=== PATIENT | male | born 1955 | race Caucasian/White ===

== ENCOUNTER → 2016-09-30 | Outpatient (CLI) | payer BC ==
[2016-09-30 09:13] LABS: Albumin 3.9 g/dL (3.4-5.0); Calcium 8.7 mg/dL (8.5-10.1); Potassium 4.7 mmol/L (3.5-5.1)
[2016-09-30 09:18] LABS: Bilirubin, Total 1.1 mg/dL (0.2-1.0); Total Protein 7.4 g/dL (6.4-8.2)
== END | disposition home or self-care (01) ==
LOC: LAB 06:59
DX: E11.29 Type 2 diabetes mellitus with other diabetic kidney complication (principal); C61 Malignant neoplasm of prostate
CPT/HCPCS: 36415; 80053; 82043; 82570; 83036; 84153

== ENCOUNTER 2018-05-01 09:38 | Inpatient (IN) | payer BC ==
[~2018-05-01] VITALS: Ht 180.3 cm; Wt 96.7 kg
[2018-05-01 11:02] LABS: Basophils # (auto) 0 uL; Basophils % (auto) 0.2 % (0.0-2.0); Eosinophils # (auto) 0 uL; Hematocrit 46.4 % (41.0-53.0); Hemoglobin 16.3 g/dL (13.5-17.5); Lymphocytes # (auto) 1.1 uL; Lymphocytes % (auto) 4.4 % (10.0-50.0); Mean Corpuscular Hemoglobin 30.6 pg (28.0-32.0); Mean Corpuscular Hgb Conc. 35.1 g/dL (32.0-36.0); Mean Corpuscular Volume 87.1 fL (80.0-100.0); Monocytes # (auto) 1.5 uL; Monocytes % (auto) 6.3 % (0.0-12.0); Neutrophils # (auto) 21.8 uL; Neutrophils % (auto) 89.1 % (37.0-80.0); Nucleated Red Blood Cells % 0.1 %; Platelet Count (auto) 295 10^3/uL (140-450); Red Blood Cells 5.33 10^6/uL (4.5-5.90); Red Cell Distribution Width 12.4 % (11.8-14.3); White Blood Cell 24.5 10^3/uL (4.4-10.8)
[2018-05-01 11:04] LABS: Urine Bacteria MANY /hpf (None Seen); Urine Blood 1+ /uL (Negative); Urine Specific Gravity 1.027 (1.001-1.035); Urine WBC 137 /hpf (0 - 3)
[2018-05-01 11:51] LABS: Alanine Aminotransferase 17 U/L (16-61); Alkaline Phosphatase 114 U/L (45-117); Anion Gap 11 (5-15); Aspartate Aminotransferase 7 U/L (15-37); BUN/Creatinine Ratio 19.4; Bilirubin, Total 2.3 mg/dL (0.2-1.0); Blood Urea Nitrogen 28 mg/dL (7-18); Calcium 8.6 mg/dL (8.5-10.1); Carbon Dioxide 21 mmol/L (21-32); Chloride 94 mmol/L (98-107); GFR African American 64 mL/min; GFR Non-African American 53 mL/min; Glucose 374 mg/dL (74-106); Magnesium 2.2 mg/dL (1.6-2.6); Potassium 4.4 mmol/L (3.5-5.1); Sodium 126 mmol/L (136-145); Total Protein 7.7 g/dL (6.4-8.2)
[2018-05-01] MEDS ORDERED: SODIUM CHLORIDE 0.9% 1,000 ML IV ONE (12:00)
[2018-05-01] MEDS ORDERED: cefTRIAXone 1GM/10ml IVPUSH 10 ML IV ONE (12:45)
[2018-05-01] MEDS ORDERED: ACETAMINOPHEN 325 MG TAB PO PRN (14:15)
[2018-05-01] MEDS ORDERED: MORPHINE SULFATE 4 MG/ML SYR/VIAL IV PRN ×2 (14:15)
[2018-05-01] MEDS ORDERED: VANCOMYCIN PER PHARMACY 0 MG IV SCH (14:15)
[2018-05-01] MEDS ORDERED: NITROGLYCERIN 0.4 MG SL TAB SL PRN (14:15)
[2018-05-01] MEDS ORDERED: TEMAZEPAM 15 MG CAP PO PRN (14:15)
[2018-05-01] MEDS ORDERED: DEXTROSE (50%) 50ML SYRG IV PRN (14:15)
[2018-05-01] MEDS ORDERED: ONDANSETRON HCL 4 MG/2 ML VIAL IV PRN (14:15)
[2018-05-01] MEDS ORDERED: HYDROcodone-ACET 5/325MG TAB PO PRN (14:15)
[2018-05-01] MEDS ORDERED: DOCUSATE SOD 100 MG CAP PO PRN (14:15)
[2018-05-01] MEDS: VANCOMYCIN 1GM/250ML 250 ML IV SCH (15:28)
[2018-05-01] MEDS ORDERED: ACET325T82 PO (15:38)
[2018-05-01] MEDS ORDERED: cloNIDine HCL 0.1 MG TAB PO PRN (17:30)
[2018-05-01] MEDS: ACCU-CHEK COMFORT CURVE STRIP VI SCH ×2 (17:34→21:26)
[2018-05-01] MEDS: InsuLIN REG 1unit/0.01ml Soln (100units/ml) SC SCH ×2 (17:37→21:27)
[2018-05-01] MEDS ORDERED: Glucerna Carbsteady SHAKE Vanilla 8oz PO SCH (18:00)
[2018-05-01] MEDS: Glucerna Carbsteady SHAKE Vanilla 8oz PO SCH (18:00)
[2018-05-01] MEDS: IPRATROPIUM BROM 0.5 MG/2.5ML INH SOL NEB SCH (18:05)
[2018-05-01] MEDS: ALBUTEROL SULF 2.5 MG/0.5ML(0.5%) NEB SOLN NEB SCH (18:05)
[2018-05-01 19:21] LABS: INR 0.94 (0.9-1.15); Prothrombin Time 10.1 sec (9.27-12.13)
[2018-05-01 19:38] VITALS: BP 146/83
[2018-05-01 20:21] VITALS: BP 144/80
[2018-05-01] MEDS: FAMOTIDINE 20 MG TAB PO SCH (21:26)
[2018-05-01 22:00] VITALS: BP 127/81
[2018-05-01] MEDS: SODIUM CHLOR 0.9% PF (SALINE LOCK) 10ML VIAL/SYR IV SCH (22:00)
[2018-05-02] MEDS: VANCOMYCIN 1GM/250ML 250 ML IV SCH ×2 (02:45→14:52)
[2018-05-02 04:45] VITALS: BP 154/90
[2018-05-02 05:53] LABS: Basophils # (auto) 0 uL; Basophils % (auto) 0.2 % (0.0-2.0); Eosinophils # (auto) 0 uL; Hematocrit 41.7 % (41.0-53.0); Hemoglobin 14.6 g/dL (13.5-17.5); Lymphocytes # (auto) 0.9 uL; Lymphocytes % (auto) 4.8 % (10.0-50.0); Mean Corpuscular Hemoglobin 30.5 pg (28.0-32.0); Mean Corpuscular Volume 87.2 fL (80.0-100.0); Monocytes # (auto) 1.3 uL; Monocytes % (auto) 7.2 % (0.0-12.0); Neutrophils # (auto) 15.6 uL; Neutrophils % (auto) 87.8 % (37.0-80.0); Nucleated Red Blood Cells % 0.1 %; Platelet Count (auto) 284 10^3/uL (140-450); Red Blood Cells 4.78 10^6/uL (4.5-5.90); Red Cell Distribution Width 12.3 % (11.8-14.3); White Blood Cell 17.8 10^3/uL (4.4-10.8)
[2018-05-02] MEDS: SODIUM CHLOR 0.9% PF (SALINE LOCK) 10ML VIAL/SYR IV SCH ×3 (06:08→21:48)
[2018-05-02 06:17] LABS: Albumin 2.6 g/dL (3.4-5.0); BUN/Creatinine Ratio 23.4; Bilirubin, Total 1.4 mg/dL (0.2-1.0); Calcium 8.2 mg/dL (8.5-10.1); Potassium 4.1 mmol/L (3.5-5.1); Total Protein 6.7 g/dL (6.4-8.2)
[2018-05-02] MEDS: InsuLIN REG 1unit/0.01ml Soln (100units/ml) SC SCH ×4 (06:25→21:48)
[2018-05-02] MEDS: ACCU-CHEK COMFORT CURVE STRIP VI SCH ×4 (06:25→21:47)
[2018-05-02] MEDS: IPRATROPIUM BROM 0.5 MG/2.5ML INH SOL NEB SCH ×3 (06:49→18:41)
[2018-05-02] MEDS: ALBUTEROL SULF 2.5 MG/0.5ML(0.5%) NEB SOLN NEB SCH ×3 (06:49→18:41)
[2018-05-02] MEDS: Glucerna Carbsteady SHAKE Vanilla 8oz PO SCH ×3 (08:00→18:13)
[2018-05-02 09:00] VITALS: BP 161/82
[2018-05-02] MEDS: cefTRIAXone 1GM/10ml IVPUSH 10 ML IV SCH (09:14)
[2018-05-02] MEDS: MULTIPLE VITAMIN TAB PO SCH (09:15)
[2018-05-02] MEDS: FAMOTIDINE 20 MG TAB PO SCH ×2 (09:15→21:47)
[2018-05-02] MEDS ORDERED: glipiZIDE 5 MG TAB PO ONE (10:45)
[2018-05-02 12:00] VITALS: BP 150/89
[2018-05-02 17:17] VITALS: BP 152/90
[2018-05-02] MEDS: glipiZIDE 5 MG TAB PO SCH (18:12)
[2018-05-02 21:52] VITALS: BP 134/83
[2018-05-03] MEDS: IPRATROPIUM BROM 0.5 MG/2.5ML INH SOL NEB SCH
[2018-05-03] MEDS: ALBUTEROL SULF 2.5 MG/0.5ML(0.5%) NEB SOLN NEB SCH
[2018-05-03] MEDS: VANCOMYCIN 1GM/250ML 250 ML IV SCH (02:50)
[2018-05-03 05:08] VITALS: BP 147/82
[2018-05-03 05:23] LABS: BUN/Creatinine Ratio 17.9; Calcium 7.6 mg/dL (8.5-10.1); Potassium 3.9 mmol/L (3.5-5.1)
[2018-05-03] MEDS: SODIUM CHLOR 0.9% PF (SALINE LOCK) 10ML VIAL/SYR IV SCH ×3 (05:24→21:21)
[2018-05-03 05:36] LABS: Hemoglobin 14.5 g/dL (13.5-17.5); Mean Corpuscular Hemoglobin 30.8 pg (28.0-32.0); Mean Corpuscular Hgb Conc. 36.1 g/dL (32.0-36.0); Mean Corpuscular Volume 85.5 fL (80.0-100.0); Platelet Count (auto) 245 10^3/uL (140-450); Red Blood Cells 4.69 10^6/uL (4.5-5.90); Red Cell Distribution Width 12.3 % (11.8-14.3); White Blood Cell 13.3 10^3/uL (4.4-10.8)
[2018-05-03 05:39] LABS: Basophils % (manual) 0 (0.0-2.0); Blast Cells 0; Eosinophils % (manual) 0 (0-7); Metamyelocytes % 0; Myelocytes % 0; Promyelocytes % 0; Reactive Lymphocytes 0
[2018-05-03] MEDS: glipiZIDE 5 MG TAB PO SCH ×2 (06:10→17:47)
[2018-05-03] MEDS: InsuLIN REG 1unit/0.01ml Soln (100units/ml) SC SCH ×4 (06:11→21:21)
[2018-05-03] MEDS: ACCU-CHEK COMFORT CURVE STRIP VI SCH ×4 (06:11→21:21)
[2018-05-03 06:15] LABS: Band Neutrophils % (manual) 2; Lymphocytes % (manual) 7 (10.0-50.0); Monocytes % (manual) 8 (0-12)
[2018-05-03 08:01] VITALS: BP 150/89
[2018-05-03 09:00] VITALS: BP 168/87
[2018-05-03] MEDS: cefTRIAXone 1GM/10ml IVPUSH 10 ML IV SCH (10:00)
[2018-05-03] MEDS: MULTIPLE VITAMIN TAB PO SCH (11:26)
[2018-05-03] MEDS: FAMOTIDINE 20 MG TAB PO SCH ×2 (11:26→21:21)
[2018-05-03] MEDS: Glucerna Carbsteady SHAKE Vanilla 8oz PO SCH ×3 (11:26→17:47)
[2018-05-03] MEDS: ERTAPENEM SOD INJ 1 GM in SODIUM CHL 0.9% 50 ML IV SCH (11:50)
[2018-05-03 13:00] VITALS: BP 148/89
[2018-05-03] MEDS: SOD CHL 0.45% WITH 20MEQ KCL 1,000 ML IV SCH (15:09)
[2018-05-03 17:00] VITALS: BP 128/83
[2018-05-03 21:40] VITALS: BP 141/74
[2018-05-04] MEDS: SOD CHL 0.45% WITH 20MEQ KCL 1,000 ML IV SCH ×3 (03:12→18:56)
[2018-05-04 05:11] VITALS: BP 139/88
[2018-05-04] MEDS: InsuLIN REG 1unit/0.01ml Soln (100units/ml) SC SCH ×4 (06:56→22:36)
[2018-05-04] MEDS: ACCU-CHEK COMFORT CURVE STRIP VI SCH ×4 (06:57→22:35)
[2018-05-04] MEDS: SODIUM CHLOR 0.9% PF (SALINE LOCK) 10ML VIAL/SYR IV SCH ×3 (06:57→22:36)
[2018-05-04] MEDS: glipiZIDE 5 MG TAB PO SCH ×2 (07:46→18:00)
[2018-05-04 09:00] VITALS: BP 138/82
[2018-05-04] MEDS: Glucerna Carbsteady SHAKE Vanilla 8oz PO SCH ×3 (09:41→18:00)
[2018-05-04] MEDS: MULTIPLE VITAMIN TAB PO SCH (10:12)
[2018-05-04] MEDS: FAMOTIDINE 20 MG TAB PO SCH ×2 (10:12→22:33)
[2018-05-04] MEDS: ERTAPENEM SOD INJ 1 GM in SODIUM CHL 0.9% 50 ML IV SCH (10:13)
[2018-05-04 12:56] LABS: BUN/Creatinine Ratio 17.5; Calcium 7.9 mg/dL (8.5-10.1); Potassium 4.5 mmol/L (3.5-5.1)
[2018-05-04 13:00] VITALS: BP 141/82
[2018-05-04 16:57] VITALS: BP 133/83
[2018-05-04 22:00] VITALS: BP 135/82
[2018-05-05 05:23] VITALS: BP 139/78
[2018-05-05] MEDS: SOD CHL 0.45% WITH 20MEQ KCL 1,000 ML IV SCH ×3 (05:44→16:56)
[2018-05-05] MEDS: SODIUM CHLOR 0.9% PF (SALINE LOCK) 10ML VIAL/SYR IV SCH ×3 (05:44→21:50)
[2018-05-05 05:54] LABS: Hematocrit 42.9 % (41.0-53.0); Hemoglobin 15.3 g/dL (13.5-17.5); Mean Corpuscular Hemoglobin 30.9 pg (28.0-32.0); Mean Corpuscular Hgb Conc. 35.7 g/dL (32.0-36.0); Mean Corpuscular Volume 86.6 fL (80.0-100.0); Platelet Count (auto) 310 10^3/uL (140-450); Red Blood Cells 4.96 10^6/uL (4.5-5.90); Red Cell Distribution Width 12.2 % (11.8-14.3); White Blood Cell 9.1 10^3/uL (4.4-10.8)
[2018-05-05 06:05] LABS: Basophils % (manual) 0 (0.0-2.0); Blast Cells 0; Eosinophils % (manual) 0 (0-7); Promyelocytes % 0; Reactive Lymphocytes 0
[2018-05-05 06:55] LABS: Band Neutrophils % (manual) 1; Lymphocytes % (manual) 31 (10.0-50.0); Metamyelocytes % 1; Monocytes % (manual) 7 (0-12); Myelocytes % 1
[2018-05-05] MEDS: InsuLIN REG 1unit/0.01ml Soln (100units/ml) SC SCH ×4 (06:59→21:51)
[2018-05-05] MEDS: ACCU-CHEK COMFORT CURVE STRIP VI SCH ×4 (06:59→21:50)
[2018-05-05] MEDS: glipiZIDE 5 MG TAB PO SCH ×2 (07:00→17:05)
[2018-05-05 09:00] VITALS: BP 135/83
[2018-05-05] MEDS: FAMOTIDINE 20 MG TAB PO SCH ×2 (09:53→21:50)
[2018-05-05] MEDS: MULTIPLE VITAMIN TAB PO SCH (09:53)
[2018-05-05] MEDS: ERTAPENEM SOD INJ 1 GM in SODIUM CHL 0.9% 50 ML IV SCH (09:54)
[2018-05-05] MEDS: Glucerna Carbsteady SHAKE Vanilla 8oz PO SCH ×3 (09:55→18:03)
[2018-05-05 13:00] VITALS: BP 137/81
[2018-05-05 16:32] VITALS: BP 136/80
[2018-05-05 21:41] VITALS: BP 128/84
[2018-05-06] MEDS: SOD CHL 0.45% WITH 20MEQ KCL 1,000 ML IV SCH ×2 (04:51→20:45)
[2018-05-06 05:19] VITALS: BP 127/66
[2018-05-06 06:07] LABS: Basophils # (auto) 0.1 uL; Basophils % (auto) 0.7 % (0.0-2.0); Eosinophils # (auto) 0.2 uL; Eosinophils % (auto) 1.9 % (0.0-7.0); Hematocrit 40.6 % (41.0-53.0); Hemoglobin 14.5 g/dL (13.5-17.5); Lymphocytes # (auto) 1.8 uL; Mean Corpuscular Hemoglobin 30.5 pg (28.0-32.0); Mean Corpuscular Hgb Conc. 35.7 g/dL (32.0-36.0); Mean Corpuscular Volume 85.4 fL (80.0-100.0); Monocytes # (auto) 1.3 uL; Monocytes % (auto) 14.7 % (0.0-12.0); Neutrophils # (auto) 5.7 uL; Neutrophils % (auto) 62.7 % (37.0-80.0); Nucleated Red Blood Cells % 0.1 %; Platelet Count (auto) 310 10^3/uL (140-450); Red Blood Cells 4.76 10^6/uL (4.5-5.90); Red Cell Distribution Width 12.1 % (11.8-14.3)
[2018-05-06] MEDS: SODIUM CHLOR 0.9% PF (SALINE LOCK) 10ML VIAL/SYR IV SCH ×3 (06:22→21:41)
[2018-05-06] MEDS: glipiZIDE 5 MG TAB PO SCH ×2 (06:39→17:41)
[2018-05-06] MEDS: ACCU-CHEK COMFORT CURVE STRIP VI SCH ×4 (06:40→21:41)
[2018-05-06] MEDS: InsuLIN REG 1unit/0.01ml Soln (100units/ml) SC SCH ×4 (06:40→21:41)
[2018-05-06 08:00] VITALS: BP 128/91
[2018-05-06] MEDS: Glucerna Carbsteady SHAKE Vanilla 8oz PO SCH ×3 (08:45→17:42)
[2018-05-06] MEDS: ERTAPENEM SOD INJ 1 GM in SODIUM CHL 0.9% 50 ML IV SCH (09:52)
[2018-05-06] MEDS: FAMOTIDINE 20 MG TAB PO SCH ×2 (09:53→21:41)
[2018-05-06] MEDS: MULTIPLE VITAMIN TAB PO SCH (09:53)
[2018-05-06 11:57] VITALS: BP 140/87
[2018-05-06 16:45] VITALS: BP 132/89
[2018-05-06 21:52] VITALS: BP 139/81
[2018-05-07] MEDS: SOD CHL 0.45% WITH 20MEQ KCL 1,000 ML IV SCH (03:44)
[2018-05-07 05:00] VITALS: BP 130/79
[2018-05-07] MEDS: SODIUM CHLOR 0.9% PF (SALINE LOCK) 10ML VIAL/SYR IV SCH ×3 (06:02→21:14)
[2018-05-07] MEDS: ACCU-CHEK COMFORT CURVE STRIP VI SCH ×4 (06:27→22:29)
[2018-05-07] MEDS: InsuLIN REG 1unit/0.01ml Soln (100units/ml) SC SCH ×4 (06:27→22:29)
[2018-05-07] MEDS: glipiZIDE 5 MG TAB PO SCH ×2 (06:27→17:34)
[2018-05-07] MEDS: Glucerna Carbsteady SHAKE Vanilla 8oz PO SCH ×3 (08:54→18:54)
[2018-05-07] MEDS: MULTIPLE VITAMIN TAB PO SCH (10:01)
[2018-05-07] MEDS: ERTAPENEM SOD INJ 1 GM in SODIUM CHL 0.9% 50 ML IV SCH (10:01)
[2018-05-07] MEDS: FAMOTIDINE 20 MG TAB PO SCH ×2 (10:01→21:14)
[2018-05-07 11:40] VITALS: BP 127/83
[2018-05-07 17:05] VITALS: BP 124/79
[2018-05-07] MEDS ORDERED: TAMSULOSIN HYDROCHLORIDE 0.4 MG CAP PO SCH (18:00)
[2018-05-07 21:54] VITALS: BP 132/75
[2018-05-08 04:56] VITALS: BP 147/83
[2018-05-08] MEDS: SODIUM CHLOR 0.9% PF (SALINE LOCK) 10ML VIAL/SYR IV SCH ×2 (06:10→14:24)
[2018-05-08] MEDS: ACCU-CHEK COMFORT CURVE STRIP VI SCH ×2 (06:11→11:26)
[2018-05-08] MEDS: InsuLIN REG 1unit/0.01ml Soln (100units/ml) SC SCH ×2 (06:12→11:32)
[2018-05-08] MEDS: glipiZIDE 5 MG TAB PO SCH (06:12)
[2018-05-08] MEDS: Glucerna Carbsteady SHAKE Vanilla 8oz PO SCH ×2 (08:00→12:15)
[2018-05-08 09:33] VITALS: BP 118/85
[2018-05-08] MEDS: ERTAPENEM SOD INJ 1 GM in SODIUM CHL 0.9% 50 ML IV SCH (09:50)
[2018-05-08] MEDS: FAMOTIDINE 20 MG TAB PO SCH (09:50)
[2018-05-08] MEDS: MULTIPLE VITAMIN TAB PO SCH (09:50)
[2018-05-08 14:08] VITALS: BP 118/75
[2018-05-08 16:15] VITALS: BP 125/70
[2018-05-08 16:53] VITALS: BP 125/70
== END 2018-05-08 17:15 | disposition home health service (06) | DRG 871 ==
LOC: ER 09:38 → TELE 09:39 → TELE-WESTW 18:41 → WEST WING 05-06 14:57
PROVIDERS: ADMIT Internal Medicine; ATTEND Internal Medicine
DX: A41.9 Sepsis, unspecified organism (principal); J18.9 Pneumonia, unspecified organism; N17.0 Acute kidney failure with tubular necrosis; N10 Acute pyelonephritis; E11.21 Type 2 diabetes mellitus with diabetic nephropathy; I12.9 Hypertensive chronic kidney disease with stage 1 through stage 4 chronic kidney disease, or unspecified chronic kidney disease; E11.22 Type 2 diabetes mellitus with diabetic chronic kidney disease; N18.3 Chronic kidney disease, stage 3 (moderate); N13.8 Other obstructive and reflux uropathy; E44.0 Moderate protein-calorie malnutrition; E11.65 Type 2 diabetes mellitus with hyperglycemia; B96.20 Unspecified Escherichia coli [E. coli] as the cause of diseases classified elsewhere; J45.909 Unspecified asthma, uncomplicated; N20.0 Calculus of kidney; N40.1 Benign prostatic hyperplasia with lower urinary tract symptoms; Z16.12 Extended spectrum beta lactamase (ESBL) resistance; Z79.84 Long term (current) use of oral hypoglycemic drugs; Z83.3 Family history of diabetes mellitus; Z91.14 Patient's other noncompliance with medication regimen; Z91.19 Patient's noncompliance with other medical treatment and regimen; Z68.29 Body mass index [BMI] 29.0-29.9, adult
CPT/HCPCS: 36415; 71046; 74176; 80048; 80053; 81001; 82962; 83036; 83605; 83735; 83880; 84132; 84443; 84484; 85007; 85025; 85027; 85610; 87040; 87045; 87086; 87088; 87186; 87493; 87899; 93306; 94761; 96361; 96372; 96374; 96375; J0696; J1335; J1815

== ENCOUNTER → 2018-06-13 | Outpatient (CLI) | payer BC ==
[~2018-06-13] MED LIST: ACET325T82 PO
[2018-06-13 17:11] LABS: Urine Bacteria MANY /hpf (None Seen); Urine Blood Negative /uL (Negative); Urine Specific Gravity 1.016 (1.001-1.035); Urine WBC 755 /hpf (0 - 3); Urine WBC Clumps PRESENT /hpf (None Seen)
== END | disposition home or self-care (01) ==
LOC: LAB 16:37
PROVIDERS: ATTEND Urology
DX: N39.0 Urinary tract infection, site not specified (principal)
CPT/HCPCS: 81001; 87086

== ENCOUNTER → 2018-07-12 | Outpatient (CLI) | payer BC | END | disposition home or self-care (01) | LOC: LAB 16:23 | PROVIDERS: ATTEND Urology | DX: N39.0 Urinary tract infection, site not specified (principal) | CPT/HCPCS: 87086 ==

== ENCOUNTER → 2018-08-15 | Outpatient (CLI) | payer BC ==
[2018-08-15 08:12] LABS: Alanine Aminotransferase 25 U/L (16-61); Albumin 3.7 g/dL (3.4-5.0); Anion Gap 3 (5-15); Aspartate Aminotransferase 14 U/L (15-37); Blood Urea Nitrogen 29 mg/dL (7-18); Calcium 8.6 mg/dL (8.5-10.1); Carbon Dioxide 27 mmol/L (21-32); Chloride 106 mmol/L (98-107); GFR African American > 60 mL/min; GFR Non-African American > 60 mL/min; Glucose 236 mg/dL (74-106); Potassium 5.3 mmol/L (3.5-5.1); Protein, Urine 10.7 mg/dL (0.0-11.9); Sodium 136 mmol/L (136-145)
[2018-08-15 08:20] LABS: Alkaline Phosphatase 73 U/L (45-117); Bilirubin, Total 0.7 mg/dL (0.2-1.0); Cholesterol 166 mg/dL (< 200); HDL Cholesterol 43 mg/dL (40-59); LDL Cholesterol 114 mg/dL (< 100); Total Protein 7.2 g/dL (6.4-8.2); Triglycerides 132 mg/dL (< 150)
[2018-08-15 08:22] LABS: Micro Albumin 8.07 mg/L (0-30.0)
== END | disposition home or self-care (01) ==
LOC: LAB 07:06
DX: E11.65 Type 2 diabetes mellitus with hyperglycemia (principal)
CPT/HCPCS: 36415; 80053; 80061; 82043; 82570; 83036; 84156

== ENCOUNTER → 2018-09-20 | Outpatient (CLI) | payer BC | END | disposition home or self-care (01) | LOC: LAB 13:41 | PROVIDERS: ATTEND Urology | DX: N39.0 Urinary tract infection, site not specified (principal) | CPT/HCPCS: 87086; 87088; 87186 ==

== ENCOUNTER → 2018-10-04 | Outpatient (CLI) | payer BC | END | disposition home or self-care (01) | LOC: LAB 07:43 | PROVIDERS: ATTEND Physician Assistant | DX: N39.0 Urinary tract infection, site not specified (principal) | CPT/HCPCS: 87086; 87088; 87186 ==

== ENCOUNTER → 2018-10-12 | Outpatient (CLI) | payer BC | END | disposition home or self-care (01) | LOC: LAB 07:04 | PROVIDERS: ATTEND Urology | DX: N40.1 Benign prostatic hyperplasia with lower urinary tract symptoms (principal) | CPT/HCPCS: 84153; 84154 ==

== ENCOUNTER → 2018-10-26 | Outpatient (CLI) | payer BC ==
[2018-10-26 08:03] LABS: Urine Bacteria FEW /hpf (None Seen); Urine Blood 2+ /uL (Negative); Urine WBC 5187 /hpf (0 - 3); Urine WBC Clumps PRESENT /hpf (None Seen)
== END | disposition home or self-care (01) ==
LOC: LAB 07:02
PROVIDERS: ATTEND Urology
DX: N40.1 Benign prostatic hyperplasia with lower urinary tract symptoms (principal)
CPT/HCPCS: 81001; 87086; 87088; 87186

== ENCOUNTER → 2018-11-15 | Outpatient (CLI) | payer BC | END | disposition home or self-care (01) | LOC: LAB 15:42 | PROVIDERS: ATTEND Urology | DX: N40.0 Benign prostatic hyperplasia without lower urinary tract symptoms (principal); N39.0 Urinary tract infection, site not specified; R97.20 Elevated prostate specific antigen [PSA] | CPT/HCPCS: 87086 ==

== ENCOUNTER 2018-12-13 00:31 | Emergency (ER) | payer BC ==
[~2018-12-13] VITALS: Ht 180.3 cm; Wt 106.6 kg
[2018-12-13 01:18] LABS: Basophils # (auto) 0.1 uL; Basophils % (auto) 0.6 % (0.0-2.0); Eosinophils # (auto) 0.1 uL; Hematocrit 47.7 % (41.0-53.0); Hemoglobin 16.7 g/dL (13.5-17.5); Lymphocytes # (auto) 2.2 uL; Mean Corpuscular Hemoglobin 30.8 pg (28.0-32.0); Monocytes # (auto) 0.7 uL; Monocytes % (auto) 6.9 % (0.0-12.0); Neutrophils # (auto) 6.4 uL; Neutrophils % (auto) 68.5 % (37.0-80.0); Platelet Count (auto) 307 10^3/uL (140-450); Red Blood Cells 5.43 10^6/uL (4.5-5.90); Red Cell Distribution Width 12.9 % (11.8-14.3); White Blood Cell 9.4 10^3/uL (4.4-10.8)
[2018-12-13 01:40] LABS: Alanine Aminotransferase 30 U/L (16-61); Albumin 3.9 g/dL (3.4-5.0); Anion Gap 10 (5-15); Aspartate Aminotransferase 22 U/L (15-37); BUN/Creatinine Ratio 17.6; Blood Urea Nitrogen 27 mg/dL (7-18); Calcium 8.8 mg/dL (8.5-10.1); Carbon Dioxide 25 mmol/L (21-32); Chloride 101 mmol/L (98-107); GFR African American 60 mL/min; GFR Non-African American 49 mL/min; Glucose 265 mg/dL (74-106); Potassium 4.2 mmol/L (3.5-5.1); Sodium 136 mmol/L (136-145)
[2018-12-13 01:44] LABS: Alkaline Phosphatase 93 U/L (45-117); Bilirubin, Total 0.7 mg/dL (0.2-1.0); Total Protein 7.4 g/dL (6.4-8.2)
[2018-12-13] MEDS ORDERED: SODIUM CHLORIDE 0.9% 1,000 ML IV ONE (05:26)
[2018-12-13] MEDS ORDERED: ASPirin 81 mg TAB PO ONE (05:30)
[2018-12-13 05:42] VITALS: BP 143/90
== END 2018-12-13 07:07 | disposition home or self-care (01) ==
LOC: ER 00:31
DX: R07.89 Other chest pain (principal); K21.9 Gastro-esophageal reflux disease without esophagitis; I10 Essential (primary) hypertension; E11.9 Type 2 diabetes mellitus without complications; J45.909 Unspecified asthma, uncomplicated
CPT/HCPCS: 36415; 71046; 80053; 84484; 85025; 93005; 94761; 99284; J7030

== ENCOUNTER → 2019-03-08 | Outpatient (CLI) | payer BC ==
[2019-03-08 08:32] LABS: Albumin 3.3 g/dL (3.4-5.0); BUN/Creatinine Ratio 16.9; Calcium 9.2 mg/dL (8.5-10.1); Potassium 4.8 mmol/L (3.5-5.1)
[2019-03-08 08:36] LABS: Bilirubin, Total 0.9 mg/dL (0.2-1.0); Total Protein 7.3 g/dL (6.4-8.2)
[2019-03-08 08:40] LABS: Protein, Urine 12.5 mg/dL (0.0-11.9)
[2019-03-08 08:50] LABS: Micro Albumin 20.4 mg/L (0-30.0)
== END | disposition home or self-care (01) ==
LOC: LAB 07:11
DX: E11.65 Type 2 diabetes mellitus with hyperglycemia (principal)
CPT/HCPCS: 36415; 80053; 80061; 82043; 82570; 83036; 84156

== ENCOUNTER → 2019-03-25 | Outpatient (CLI) | payer BC | END | disposition home or self-care (01) | LOC: LAB 08:39 | PROVIDERS: ATTEND Nurse Practitioner Family | DX: N39.0 Urinary tract infection, site not specified (principal) | CPT/HCPCS: 87086; 87088; 87186 ==

== ENCOUNTER → 2019-05-09 | Outpatient (CLI) | payer BC ==
[2019-05-09 14:56] LABS: Urine Bacteria MANY /hpf (None Seen); Urine Blood Negative /uL (Negative); Urine Mucus FEW (None Seen); Urine Specific Gravity 1.017 (1.001-1.035); Urine WBC 189 /hpf (0 - 3); Urine WBC Clumps PRESENT /hpf (None Seen)
== END | disposition home or self-care (01) ==
LOC: LAB 12:26
PROVIDERS: ATTEND Nurse Practitioner
DX: N39.0 Urinary tract infection, site not specified (principal)
CPT/HCPCS: 81001; 87086; 87088; 87186

== ENCOUNTER → 2019-06-11 | Outpatient (CLI) | payer BC ==
[~2019-06-11] MED LIST changes: +SULF400T11 PO
== END | disposition home or self-care (01) ==
LOC: LAB 07:13
PROVIDERS: ATTEND Physician Assistant
DX: N39.0 Urinary tract infection, site not specified (principal); E11.9 Type 2 diabetes mellitus without complications; K21.9 Gastro-esophageal reflux disease without esophagitis; I10 Essential (primary) hypertension; Z90.49 Acquired absence of other specified parts of digestive tract
CPT/HCPCS: 87086; 87088; 87186

== ENCOUNTER → 2019-10-08 | Outpatient (CLI) | payer BC ==
[~2019-10-08] MED LIST changes: +GLIP5TAB12 PO; +HYDR12.56 PO; +INSU1.2I SC
== END | disposition home or self-care (01) ==
LOC: LAB 09:47
PROVIDERS: ATTEND Nurse Practitioner Family
DX: N30.90 Cystitis, unspecified without hematuria (principal)
CPT/HCPCS: 87086; 87088; 87186

== ENCOUNTER → 2019-11-01 | Outpatient (CLI) | payer BC ==
[2019-11-01 08:14] LABS: Albumin 3.8 g/dL (3.4-5.0); Calcium 8.9 mg/dL (8.5-10.1); Potassium 4.8 mmol/L (3.5-5.1)
[2019-11-01 08:20] LABS: BUN/Creatinine Ratio 21.6; Bilirubin, Total 0.7 mg/dL (0.2-1.0); Total Protein 7.3 g/dL (6.4-8.2)
== END | disposition home or self-care (01) ==
LOC: LAB 07:14
DX: E11.65 Type 2 diabetes mellitus with hyperglycemia (principal)
CPT/HCPCS: 36415; 80053; 83036

== ENCOUNTER 2019-11-03 08:24 | Inpatient (IN) | payer BC ==
[~2019-11-03] VITALS: Ht 180.3 cm; Wt 102.3 kg
[~2019-11-03 08:24] MED LIST changes: -GLIP5TAB12 PO; -HYDR12.56 PO; -INSU1.2I SC
[2019-11-03 09:06] LABS: Basophils # (auto) 0.1 10 ^3/uL (0-0.2); Basophils % (auto) 0.5 % (0.0-2.0); Eosinophils # (auto) 0 10 ^3/uL (0-0.8); Eosinophils % (auto) 0.2 % (0.0-7.0); Hematocrit 47.7 % (41.0-53.0); Hemoglobin 16.3 g/dL (13.5-17.5); Lymphocytes # (auto) 1.5 10 ^3/uL (0.4-5.4); Mean Corpuscular Hemoglobin 30.1 pg (28.0-32.0); Mean Corpuscular Hgb Conc. 34.2 g/dL (32.0-36.0); Mean Corpuscular Volume 87.8 fL (80.0-100.0); Monocytes % (auto) 5.3 % (0.0-12.0); Neutrophils # (auto) 15.7 10 ^3/uL (1.6-8.6); Nucleated Red Blood Cells % 0.4 %; Platelet Count (auto) 260 10^3/uL (140-450); Red Blood Cells 5.44 10^6/uL (4.5-5.90); Red Cell Distribution Width 12.7 % (11.8-14.3); White Blood Cell 18.3 10^3/uL (4.4-10.8)
[2019-11-03] MEDS ORDERED: SODIUM CHLORIDE 0.9% 1,000 ML IV ONE (09:17)
[2019-11-03] MEDS ORDERED: SODIUM CHLORIDE 0.9% 500 ML IV ONE (09:17)
[2019-11-03 09:33] LABS: Urine Bacteria MANY /hpf (None Seen); Urine Blood TRACE /uL (Negative); Urine Specific Gravity 1.011 (1.001-1.035); Urine WBC 337 /hpf (0 - 3); Urine WBC Clumps PRESENT /hpf (None Seen)
[2019-11-03 09:34] LABS: Albumin 3.6 g/dL (3.4-5.0); BUN/Creatinine Ratio 19.3
[2019-11-03 09:37] LABS: Bilirubin, Total 1.4 mg/dL (0.2-1.0); Total Protein 7.6 g/dL (6.4-8.2)
[2019-11-03 10:07] LABS: Magnesium 1.9 mg/dL (1.6-2.6)
[2019-11-03] MEDS ORDERED: VANCOMYCIN 1GM/250ML 250 ML IV ONE (11:15)
[2019-11-03] MEDS ORDERED: ONDANSETRON HCL 4 MG/2 ML VIAL IV PRN (12:00)
[2019-11-03] MEDS ORDERED: MORPHINE SULF INJ 2 MG/ML SYRINGE 1ML IV PRN ×2 (12:00)
[2019-11-03] MEDS ORDERED: HYDROcodone-ACET 5/325MG TAB PO PRN (12:00)
[2019-11-03] MEDS ORDERED: ACETAMINOPHEN 500 MG TAB PO PRN (12:00)
[2019-11-03] MEDS ORDERED: NITROGLYCERIN 0.4 MG SL TAB SL PRN (12:00)
[2019-11-03] MEDS ORDERED: DEXTROSE (50%) 50ML SYRG IV PRN (12:00)
[2019-11-03] MEDS: ERTAPENEM SOD INJ 1 GM in SODIUM CHL 0.9% 50 ML IV SCH (13:07)
[2019-11-03] MEDS ORDERED: HYDR12.56 PO (14:29)
[2019-11-03] MEDS ORDERED: INSU1.2I SC ×2 (14:29→14:31)
[2019-11-03] MEDS ORDERED: GLIP5TAB12 PO (14:29)
[2019-11-03] MEDS: SODIUM CHLORIDE 0.9% 1,000 ML IV SCH ×2 (14:41→20:48)
[2019-11-03 17:00] VITALS: BP 139/78
[2019-11-03] MEDS: ACCU-CHEK COMFORT CURVE STRIP VI SCH ×2 (17:23→22:38)
[2019-11-03] MEDS: InsuLIN REG 1unit/0.01ml Soln (100units/ml) SC SCH ×2 (17:23→22:38)
[2019-11-03 21:34] VITALS: BP 135/72
[2019-11-04 04:40] VITALS: BP 143/77
[2019-11-04] MEDS: SODIUM CHLORIDE 0.9% 1,000 ML IV SCH ×3 (05:00→21:21)
[2019-11-04] MEDS: InsuLIN REG 1unit/0.01ml Soln (100units/ml) SC SCH ×4 (06:55→21:22)
[2019-11-04] MEDS: ACCU-CHEK COMFORT CURVE STRIP VI SCH ×4 (06:56→21:21)
[2019-11-04 08:15] VITALS: BP 131/86
[2019-11-04 09:02] VITALS: BP 131/86
[2019-11-04] MEDS ORDERED: ERTAPENEM SOD INJ 1 GM in SODIUM CHL 0.9% 50 ML IV SCH (10:00)
[2019-11-04] MEDS: PANTOPRAZOLE 40 MG TAB PO SCH (11:27)
[2019-11-04] MEDS: ERTAPENEM SOD INJ 1 GM in SODIUM CHL 0.9% 50 ML IV SCH (11:27)
[2019-11-04 12:19] VITALS: BP 149/87
[2019-11-04 16:44] VITALS: BP 162/88
[2019-11-04 22:00] VITALS: BP 120/86
[2019-11-05] MEDS: SODIUM CHLORIDE 0.9% 1,000 ML IV SCH ×2 (04:28→12:09)
[2019-11-05 05:02] LABS: Basophils # (auto) 0.1 10 ^3/uL (0-0.2); Eosinophils # (auto) 0.3 10 ^3/uL (0-0.8); Eosinophils % (auto) 4.1 % (0.0-7.0); Hematocrit 44.1 % (41.0-53.0); Hemoglobin 15.4 g/dL (13.5-17.5); Lymphocytes # (auto) 1.4 10 ^3/uL (0.4-5.4); Lymphocytes % (auto) 18.5 % (10.0-50.0); Mean Corpuscular Hemoglobin 30.8 pg (28.0-32.0); Mean Corpuscular Volume 88.2 fL (80.0-100.0); Monocytes # (auto) 0.6 10 ^3/uL (0-1.3); Monocytes % (auto) 7.5 % (0.0-12.0); Neutrophils # (auto) 5.3 10 ^3/uL (1.6-8.6); Neutrophils % (auto) 68.9 % (37.0-80.0); Nucleated Red Blood Cells % 1.5 %; Platelet Count (auto) 213 10^3/uL (140-450); Red Cell Distribution Width 12.5 % (11.8-14.3); White Blood Cell 7.8 10^3/uL (4.4-10.8)
[2019-11-05 05:20] LABS: BUN/Creatinine Ratio 18.9; Calcium 8.6 mg/dL (8.5-10.1); Potassium 4.3 mmol/L (3.5-5.1)
[2019-11-05 05:27] VITALS: BP 142/81
[2019-11-05] MEDS: ACCU-CHEK COMFORT CURVE STRIP VI SCH ×4 (06:36→21:47)
[2019-11-05] MEDS: InsuLIN REG 1unit/0.01ml Soln (100units/ml) SC SCH ×4 (06:37→21:35)
[2019-11-05 08:52] VITALS: BP 133/88
[2019-11-05] MEDS: ERTAPENEM SOD INJ 1 GM in SODIUM CHL 0.9% 50 ML IV SCH (10:01)
[2019-11-05] MEDS: PANTOPRAZOLE 40 MG TAB PO SCH (10:01)
[2019-11-05 13:27] VITALS: BP 146/84
[2019-11-05 16:36] VITALS: BP 142/78
[2019-11-05] MEDS: TAMSULOSIN HYDROCHLORIDE 0.4 MG CAP PO SCH (17:37)
[2019-11-05 21:30] VITALS: BP 147/85
[2019-11-06] MEDS: SODIUM CHLORIDE 0.9% 1,000 ML IV SCH ×2 (04:30→14:45)
[2019-11-06 05:19] VITALS: BP 146/91
[2019-11-06 05:31] LABS: Basophils # (auto) 0.1 10 ^3/uL (0-0.2); Eosinophils # (auto) 0.2 10 ^3/uL (0-0.8); Eosinophils % (auto) 3.7 % (0.0-7.0); Hematocrit 42.2 % (41.0-53.0); Hemoglobin 14.9 g/dL (13.5-17.5); Lymphocytes # (auto) 1.6 10 ^3/uL (0.4-5.4); Lymphocytes % (auto) 23.5 % (10.0-50.0); Mean Corpuscular Hemoglobin 30.8 pg (28.0-32.0); Mean Corpuscular Hgb Conc. 35.2 g/dL (32.0-36.0); Mean Corpuscular Volume 87.7 fL (80.0-100.0); Monocytes # (auto) 0.5 10 ^3/uL (0-1.3); Monocytes % (auto) 7.1 % (0.0-12.0); Neutrophils # (auto) 4.3 10 ^3/uL (1.6-8.6); Neutrophils % (auto) 64.7 % (37.0-80.0); Nucleated Red Blood Cells % 0.1 %; Platelet Count (auto) 233 10^3/uL (140-450); Red Blood Cells 4.82 10^6/uL (4.5-5.90); Red Cell Distribution Width 12.6 % (11.8-14.3); White Blood Cell 6.6 10^3/uL (4.4-10.8)
[2019-11-06 05:51] LABS: Potassium 4.1 mmol/L (3.5-5.1)
[2019-11-06 05:56] LABS: BUN/Creatinine Ratio 16.7; Calcium 8.6 mg/dL (8.5-10.1)
[2019-11-06] MEDS: InsuLIN REG 1unit/0.01ml Soln (100units/ml) SC SCH ×4 (06:32→22:00)
[2019-11-06] MEDS: ACCU-CHEK COMFORT CURVE STRIP VI SCH ×4 (06:46→22:40)
[2019-11-06 08:45] VITALS: BP 128/88
[2019-11-06] MEDS: PANTOPRAZOLE 40 MG TAB PO SCH (09:52)
[2019-11-06] MEDS: ERTAPENEM SOD INJ 1 GM in SODIUM CHL 0.9% 50 ML IV SCH (09:52)
[2019-11-06] MEDS ORDERED: FINASTERIDE 5 MG TAB PO ONE (11:45)
[2019-11-06 13:00] VITALS: BP 135/88
[2019-11-06 17:00] VITALS: BP 143/82
[2019-11-06] MEDS: TAMSULOSIN HYDROCHLORIDE 0.4 MG CAP PO SCH (18:03)
[2019-11-06 21:50] VITALS: BP 137/74
[2019-11-07] MEDS: SODIUM CHLORIDE 0.9% 1,000 ML IV SCH (02:46)
[2019-11-07 05:03] VITALS: BP 137/86
[2019-11-07] MEDS: InsuLIN REG 1unit/0.01ml Soln (100units/ml) SC SCH ×2 (05:53→11:36)
[2019-11-07] MEDS: ACCU-CHEK COMFORT CURVE STRIP VI SCH ×2 (05:57→11:36)
[2019-11-07 09:00] VITALS: BP 130/84
[2019-11-07] MEDS: PANTOPRAZOLE 40 MG TAB PO SCH (09:32)
[2019-11-07] MEDS: ERTAPENEM SOD INJ 1 GM in SODIUM CHL 0.9% 50 ML IV SCH (09:32)
[2019-11-07] MEDS ORDERED: FINASTERIDE 5 MG TAB PO SCH (10:00)
[2019-11-07 11:32] VITALS: BP 130/84
[2019-11-07 13:00] VITALS: BP 149/88
== END 2019-11-07 13:25 | disposition home or self-care (01) | DRG 871 ==
LOC: ER 08:24 → TELE 08:25 → TELE-CENTR 13:17 → CENTRAL 11-05 11:51
PROVIDERS: ADMIT Nurse Practitioner Acute Care; ATTEND Internal Medicine
DX: A41.51 Sepsis due to Escherichia coli [E. coli] (principal); N17.0 Acute kidney failure with tubular necrosis; N12 Tubulo-interstitial nephritis, not specified as acute or chronic; E87.1 Hypo-osmolality and hyponatremia; J45.909 Unspecified asthma, uncomplicated; I12.9 Hypertensive chronic kidney disease with stage 1 through stage 4 chronic kidney disease, or unspecified chronic kidney disease; N18.3 Chronic kidney disease, stage 3 (moderate); E86.0 Dehydration; E66.9 Obesity, unspecified; E11.22 Type 2 diabetes mellitus with diabetic chronic kidney disease; N40.0 Benign prostatic hyperplasia without lower urinary tract symptoms; E11.21 Type 2 diabetes mellitus with diabetic nephropathy; K21.9 Gastro-esophageal reflux disease without esophagitis; Z79.899 Other long term (current) drug therapy; Z90.49 Acquired absence of other specified parts of digestive tract; Z79.4 Long term (current) use of insulin; Z86.19 Personal history of other infectious and parasitic diseases; Z68.31 Body mass index [BMI] 31.0-31.9, adult
CPT/HCPCS: 36415; 71046; 80048; 80053; 81001; 82962; 83036; 83605; 83735; 84443; 84484; 85025; 87040; 87086; 93005; 96361; 96365; 96367; G0378; J1335; J1815

== ENCOUNTER → 2019-11-22 | Outpatient (CLI) | payer BC ==
[~2019-11-22] MED LIST changes: +GLIP5TAB12 PO; +HYDR12.56 PO; +INSU1.2I SC; -SULF400T11 PO
== END | disposition home or self-care (01) ==
LOC: LAB 07:36
PROVIDERS: ATTEND Urology
DX: N39.0 Urinary tract infection, site not specified (principal)
CPT/HCPCS: 87086

== ENCOUNTER → 2019-12-25 | Outpatient (CLI) | payer BC ==
[2019-12-25 08:40] LABS: Cholesterol 183 mg/dL (< 200); HDL Cholesterol 44 mg/dL (40-59); LDL Cholesterol 118 mg/dL (< 100); Triglycerides 188 mg/dL (< 150)
== END | disposition home or self-care (01) ==
LOC: LAB 07:06
PROVIDERS: ATTEND Internal Medicine
DX: E11.9 Type 2 diabetes mellitus without complications (principal); I10 Essential (primary) hypertension; N39.0 Urinary tract infection, site not specified; R30.0 Dysuria
CPT/HCPCS: 36415; 80061; 82043; 87086; 87088; 87186

== ENCOUNTER 2020-01-09 10:08 | Day surgery (SDC) | payer BC ==
[2020-01-07 10:13] LABS: Basophils # (auto) 0.1 10 ^3/uL (0-0.2); Basophils % (auto) 0.5 % (0.0-2.0); Eosinophils # (auto) 0.2 10 ^3/uL (0-0.8); Eosinophils % (auto) 1.2 % (0.0-7.0); Hematocrit 43.3 % (41.0-53.0); Lymphocytes # (auto) 2.2 10 ^3/uL (0.4-5.4); Lymphocytes % (auto) 15.2 % (10.0-50.0); Mean Corpuscular Hemoglobin 30.1 pg (28.0-32.0); Mean Corpuscular Hgb Conc. 34.7 g/dL (32.0-36.0); Mean Corpuscular Volume 86.6 fL (80.0-100.0); Monocytes # (auto) 0.9 10 ^3/uL (0-1.3); Monocytes % (auto) 5.9 % (0.0-12.0); Neutrophils # (auto) 11.1 10 ^3/uL (1.6-8.6); Neutrophils % (auto) 77.2 % (37.0-80.0); Nucleated Red Blood Cells % 0.7 %; Platelet Count (auto) 297 10^3/uL (140-450); Urine Bacteria MANY /hpf (None Seen); Urine Blood Negative /uL (Negative); Urine Specific Gravity 1.007 (1.001-1.035); Urine WBC 424 /hpf (0 - 3); Urine WBC Clumps PRESENT /hpf (None Seen); White Blood Cell 14.4 10^3/uL (4.4-10.8)
[2020-01-07 10:26] LABS: Albumin 3.7 g/dL (3.4-5.0); Calcium 8.6 mg/dL (8.5-10.1)
[2020-01-07 10:29] LABS: Partial Thromboplastin Time 27.6 sec (23.64-32.05)
[2020-01-07 10:30] LABS: BUN/Creatinine Ratio 19.7; Bilirubin, Total 0.7 mg/dL (0.2-1.0); Total Protein 7.3 g/dL (6.4-8.2)
[~2020-01-09] VITALS: Ht 180.3 cm; Wt 104.3 kg
[~2020-01-09 10:08] MED LIST changes: -ACET325T82 PO; +FINA5TAB4 PO; +TAMS0.4C36 PO
[2020-01-09] MEDS ORDERED: fentaNYL CITRATE 100 MCG/2 ML VL ONE (13:00)
[2020-01-09] MEDS ORDERED: PROPOFOL 10 MG/ML 20 ML IV ONE (13:30)
[2020-01-09] MEDS ORDERED: fentaNYL CITRATE 100 MCG/2 ML VL IV ONE (13:31)
[2020-01-09] MEDS ORDERED: ONDANSETRON HCL 4 MG/2 ML VIAL IV PRN (13:45)
[2020-01-09] MEDS ORDERED: fentaNYL CITRATE 100 MCG/2 ML VL IV PRN (13:45)
[2020-01-09] MEDS ORDERED: BELLADONNA ALKAL/OPIUM (16.2/30MG) RECT SUPP PR ONE (13:45)
[2020-01-09] MEDS ORDERED: ePHEDrine SULFATE 50 MG/ML AMP IV PRN (13:45)
[2020-01-09] MEDS ORDERED: hydrALAZINE HCL 20 MG/ML VL IV PRN (13:45)
[2020-01-09 14:03] VITALS: BP 128/80
== END 2020-01-09 14:26 | disposition home or self-care (01) ==
LOC: SUR 10:08
PROVIDERS: ATTEND Urology
DX: N32.9 Bladder disorder, unspecified (principal); K21.9 Gastro-esophageal reflux disease without esophagitis; N40.1 Benign prostatic hyperplasia with lower urinary tract symptoms; E11.9 Type 2 diabetes mellitus without complications; I10 Essential (primary) hypertension; Z98.890 Other specified postprocedural states; Z79.899 Other long term (current) drug therapy; Z11.59 Encounter for screening for other viral diseases
CPT/HCPCS: 36415; 52224; 80053; 81001; 82962; 85025; 85610; 85730; 87635; J2704; J3010; J7030

== ENCOUNTER → 2020-01-16 | Outpatient (CLI) | payer BC | END | disposition home or self-care (01) | LOC: LAB 07:06 | PROVIDERS: ATTEND Internal Medicine | DX: N39.0 Urinary tract infection, site not specified (principal) | CPT/HCPCS: 87086; 87088; 87186 ==